=== PATIENT | male | born 1975 | race Caucasian/White ===

== ENCOUNTER 2024-05-19 10:40 | Outpatient (CLI) | payer BC, SELFPAY ==
--- NOTE | ~2024-05-19 | US_ITS ---
Limited Abdominal Sonogram: Real-time sonographic imaging of the right upper quadrant and left upper quadrant was performed. Clinical History: Left upper quadrant pain, increased bilirubin Findings: The liver appears normal with no evidence of mass lesion or bile duct dilatation. Main por elsi vein demonstrates normal direction of flow. The gallbladder is well distended, and appears normal with no evidence of gallstone or wall thickening. The common bile duct measures 3 mm. The visualize d pancreas, aorta, and IVC are unremarkable. Spleen unremarkable. Impression: No significant abnormality seen. Reviewed, dictated and finalized at location M. Impression: No significant abnormality seen.
== END 2024-05-19 10:41 | disposition home or self-care (01) ==
LOC: GOSHIMG 10:40
PROVIDERS: PCP Nurse Practitioner Family; Visit Provider Nurse Practitioner Family
DX: R10.12 Left upper quadrant pain (principal); R17 Unspecified jaundice
CPT/HCPCS: 76705